=== PATIENT | female | born 1995 | race Caucasian/White ===

== ENCOUNTER 2018-12-07 11:45 | Emergency (ER) | payer MEDICAID ==
[~2018-12-07] VITALS: Ht 177.8 cm; Wt 86.2 kg
[~2018-12-07 11:45] MED LIST: NKM
[2018-12-07 12:00] VITALS: BP 140/101
--- NOTE | 2018-12-07 12:00 | NUR ---
ED Nurse Note: pt present at ER c/o dizziness since yesterday. pt denied pain. pt aao x4 and accompanied by mother. skin clean and intact but pale. pt was assisted to sit down to prevent falling.
--- NOTE | 2018-12-07 12:16 | Emergency Room Report ---
History of Present Illness General Chief Complaint: Dizziness Source: Patient Present Illness HPI 23-year-old female patient presents ER complaint of dizziness since yesterday. Reports dizziness worse with position change. Reports room spinning sensation. Reports mild photosensitivity. Denies dizziness symptoms currently. Reports one episode of vomiting yesterday, denies recent travel outside the country. Denies fever, chest pain, shortness of breath. Denies abdominal pain. Denies recent injury or trauma. Reports dizziness worse with position change. Denies vision loss or eye pain. States is not taking medication for relief of symptoms. Denies other aggravating or relieving factors. Denies phonophobia. Denies tinnitus. Allergies: Coded Allergies: No Known Allergies (Unverified , 01/21/14) Patient History Past Medical History: see triage record Last Menstrual Period: 11/30/18 Reviewed Nursing Documentation: PMH: Agreed; PSxH: Agreed Nursing Documentation-PM Past Medical History: No Stated History Review of Systems All Other Systems: negative except mentioned in HPI Physical Exam Vital Signs Date Time Temp Pulse Resp B/P (MAP) Pulse Ox O2 Delivery O2 Flow Rate FiO2 12/07/18 11:54 98.6 81 18 140/101 99 Room Air Sp02 EP Interpretation: reviewed, normal General Appearance: well appearing, no apparent distress, alert, GCS 15, non- toxic Head: normocephalic, atraumatic, other - Maxillary or frontal sinus tender to palpation Eyes: bilateral eye normal inspection, bilateral eye PERRL, bilateral eye EOMI ENT: hearing grossly normal, normal pharynx, no angioedema, normal voice, TMs + canals normal, uvula midline, moist mucus membranes Neck: full range of motion, no meningismus, no bony tend Respiratory: lungs clear, normal breath sounds, no rhonchi, no respiratory distress, no accessory muscle use, no wheezing, speaking full sentences Cardiovascular #1: regular rate, rhythm, no edema Gastrointestinal: non tender, soft, no mass, non-distended, no guarding, no rebound Genitourinary: no CVA tenderness Musculoskeletal: back normal, digits/nails normal, gait/station normal, normal range of motion, non-tender Neurologic: alert, oriented x3, responsive, cigar wrapper tender automatic III-XII nml as tested, motor strength/tone normal, SLR negative, sensory intact, cerebellar normal, normal gait, speech normal, other - Negative Kernig, negative Brudzinski Psychiatric: mood/affect normal Skin: no rash Lymphatic: no adenopathy Medical Decision Making PA Attestation Dr. John is my supervising Physician whom patient management has been discussed with. Diagnostic Impression: Primary Impression: Vertigo Additional Impression: Orthostatic dizziness ER Course Pt. presents to the ED c/o dizziness. Ddx considered but are not limited to orthostatic dizziness, vertigo, hypoglycemia, electrolyte abnormality, arrhythmia, medication side effect, , anemia, BPPV, Mnire's. NO signs or symptoms consistent central vertigo, symptoms consistent with peripheral vertigo, cranial nerves intact as tested, no focal neuro deficits, does not require CT head at this time. Negative Kernig, negative Brudzinski, patient afebrile, low suspicion for meningitis, does not require meningitis workup. Vital signs: are WNL, pt. is afebrile ER COURSE: Provided with zofran and toradol. Physical exam benign. Orthostatic vitals show mild elevation in pulse from lying down to standing, no change of blood pressure, will provide patient with IV fluids. EKG normal sinus rhythm, no ST elevation or atrial fibrillation. Low suspicion of cardiac etiology of symptoms. CBC and CMP unremarkable, no anemia, no electrolyte abnormality UA unremarkable, denying acute infection. Urine Provided with patient with Reglan for vertigo symptoms. Patient reports symptoms improve. Patient resting comfortably no acute distress , nontoxic-appearing. ER precautions given. Follow-up with neuro specialist. Patient reports feeling better, revealed ambulating freely without difficulty. Okay for outpatient follow-up and treatment. DISCHARGE: At this time pt is stable for d/c to home. Patient is resting comfortably, in no acute distress, nontoxic appearing, talking without difficulty. Patient to take medications as instructed Will provide with patient care instructions and any necessary prescriptions. Care plan and follow-up instructions provided. Patient instructed to follow-up with primary care provider in 3 - 5 days. Patient questions asked and answered. Patient reports understanding and agreement to treatment plan. ER precautions given. Patient instructed to return to ER immediately for any new or worsening of symptoms including but not limited to increasing SOB, persistent fever, chest pain, intractable vomiting. - Please note that this Emergency Department Report was dictated using [employer] attendant technology software, occasionally this can lead to erroneous entry secondary to interpretation by the dictation equipment. Labs Test 12/07/18 12:45 White Blood Count 7.3 K/UL (4.8-10.8) Red Blood Count 5.57 M/UL (4.20-5.40) Hemoglobin 14.8 G/DL (12.0-16.0) Hematocrit 46.0 % (37.0-47.0) Mean Corpuscular Volume 83 FL (80-99) Mean Corpuscular Hemoglobin 26.6 PG (27.0-31.0) Mean Corpuscular Hemoglobin Concent 32.1 G/DL (32.0-36.0) Red Cell Distribution Width 13.4 % (11.6-14.8) Platelet Count 343 K/UL (150-450) Mean Platelet Volume 6.8 FL (6.5-10.1) Neutrophils (%) (Auto) 71.0 % (45.0-75.0) Lymphocytes (%) (Auto) 22.0 % (20.0-45.0) Monocytes (%) (Auto) 4.6 % (1.0-10.0) Eosinophils (%) (Auto) 1.5 % (0.0-3.0) Basophils (%) (Auto) 1.0 % (0.0-2.0) Urine Color Pale yellow Urine Appearance Clear Urine pH 5 (4.5-8.0) Urine Specific [place] 1.015 (1.005-1.035) Urine Protein Negative (NEGATIVE) Urine Glucose (UA) Negative (NEGATIVE) Urine Ketones Negative (NEGATIVE) Urine Blood 3+ (NEGATIVE) Urine Nitrite Negative (NEGATIVE) Urine Bilirubin Negative (NEGATIVE) Urine Urobilinogen Normal MG/DL (0.0-1.0) Urine Leukocyte Esterase 1+ (NEGATIVE) Urine RBC 0-2 /HPF (0 - 2) Urine WBC 0-2 /HPF (0 - 2) Urine Squamous Epithelial Cells Occasional /LPF Urine Bacteria Few /HPF (NONE) Urine HCG, Qualitative Negative (NEGATIVE) Sodium Level 141 MMOL/L (136-145) Potassium Level 4.0 MMOL/L (3.5-5.1) Chloride Level 105 MMOL/L (98-107) Carbon Dioxide Level 27 MMOL/L (21-32) Anion Gap 10 mmol/L (5-15) Blood Urea Nitrogen 12 mg/dL (7-18) Creatinine 0.8 MG/DL (0.55-1.30) Estimat Glomerular Filtration Rate > 60 mL/min (>60) Glucose Level 85 MG/DL (74-106) Calcium Level 9.2 MG/DL (8.5-10.1) Total Bilirubin 0.3 MG/DL (0.2-1.0) Aspartate Amino Transf (AST/SGOT) 9 U/L (15-37) Alanine Aminotransferase (ALT/SGPT) 24 U/L (12-78) Alkaline Phosphatase 66 U/L (46-116) Total Protein 7.9 G/DL (6.4-8.2) Albumin 3.9 G/DL (3.4-5.0) Globulin 4.0 g/dL Albumin/Globulin Ratio 1.0 (1.0-2.7) Lipase 303 U/L (73-393) EKG Diagnostic Results Rate: normal Rhythm: NSR ST Segments: no acute changes ASA given to the pt in ED: No PA Scribe Text Chad Sheriff PA-C Rhythm Strip Diag. Results EP Interpretation: yes Rate: 66 Rhythm: NSR, no PVC's, no ectopy PA Scribe Text Chad Sheriff PA-C Last Vital Signs Date Time Temp Pulse Resp B/P (MAP) Pulse Ox O2 Delivery O2 Flow Rate FiO2 12/07/18 11:54 98.6 81 18 140/101 99 Room Air Status: improved Disposition: HOME, SELF-CARE Condition: Stable Scripts Loratadine/Pseudoephedrine (CLARITIN-D 12 HOUR TABLET) 1 Each Tab.er.12h 1 TAB ORAL EVERY 12 HOURS, #24 TAB Prov: Addy Sheriff.[email or web address] 12/07/18 Acetaminophen* (TYLENOL EXTRA STRENGTH*) 500 Mg Tablet 500 MG ORAL Q8H PRN for Prn Headache/Temp > 101, #30 TAB 0 Refills Prov: Addy Sheriff.Lorenza 12/07/18 Meclizine Hcl* (VERTICALM*) 25 Mg Tablet 25 MG ORAL THREE TIMES A DAY, #15 TAB Prov: Addy Sheriff.A. 12/07/18 Patient Instructions: Dizziness, Orthostatic Hypotension, Sinus Headache, Easy- to-Read, Vertigo Additional Instructions: Followup with primary care provider in 3 -5 days. Discussed referral to neuro specialist. ER precautions given. Drink plenty fluids. Take medications as directed. Patient questions asked and answered. ER precautions given, patient instructed to return to ER immediately for any new or worsening of symptoms. Addy Sheriff Dec 07, 2018 12:15
[2018-12-07 13:05] LABS: APPEARANCE,URINE CLEAR; BILIRUBIN, URINE NEGATIVE (NEGATIVE); COLOR,URINE PALE YELLOW; GLUCOSE, URINE (UA) NEGATIVE (NEGATIVE); KETONES,URINE NEGATIVE (NEGATIVE); LEUKOCYTE ESTERASE ,URINE 1+ (NEGATIVE); NITRITE,URINE NEGATIVE (NEGATIVE); PH,URINE 5 (4.5-8.0); PROTEIN,URINE NEGATIVE (NEGATIVE); UROBILINOGEN,URINE NORMAL MG/DL (0.0-1.0)
[2018-12-07 13:11] LABS: EOSINOPHILS % (AUTO) 1.5 % (0.0-3.0); HEMOGLOBIN 14.8 G/DL (12.0-16.0); MEAN CORPUSCULAR VOLUME 83 FL (80-99); MONOCYTES % (AUTO) 4.6 % (1.0-10.0); PLATELET COUNT 343 K/UL (150-450); RED BLOOD COUNT 5.57 M/UL (4.20-5.40); RED CELL DISTRIBUTION WIDTH 13.4 % (11.6-14.8); WHITE BLOOD COUNT 7.3 K/UL (4.8-10.8)
[2018-12-07 13:16] LABS: ANION GAP 10 mmol/L (5-15); BLOOD UREA NITROGEN 12 mg/dL (7-18); CALCIUM 9.2 MG/DL (8.5-10.1); CARBON DIOXIDE 27 MMOL/L (21-32); CHLORIDE 105 MMOL/L (98-107); CREATININE 0.8 MG/DL (0.55-1.30); SODIUM 141 MMOL/L (136-145)
[2018-12-07 13:20] LABS: ALANINE AMINOTRANSFERASE 24 U/L (12-78); ALBUMIN 3.9 G/DL (3.4-5.0); ALKALINE PHOSPHATASE 66 U/L (46-116); ASPARTATE AMINO TRANSFERASE 9 U/L (15-37); BILIRUBIN,TOTAL 0.3 MG/DL (0.2-1.0)
[2018-12-07] MEDS ORDERED: Ketorolac 30mg Inj IV ONE (14:00)
[2018-12-07] MEDS ORDERED: Metoclopramide 10mg/2ml Inj IVP ONE (14:15)
[2018-12-07] MEDS ORDERED: VERTICALM25 MG ORAL (15:00)
[2018-12-07] MEDS ORDERED: CLARITIN-D 121 EAC1 ORAL (15:00)
[2018-12-07] MEDS ORDERED: TYLENOL EXTRA500 MG ORAL (15:00)
[2018-12-07 15:20] VITALS: BP 108/71
--- NOTE | 2018-12-07 15:20 | NUR ---
ER DISCHARGE NOTE: Patient is cleared to be discharged per ERMD, pt is aox4, accompanied by mother, on room air, with stable vital signs. pt was given dc and prescription instructions, pt was able to verbalize understanding, pt id band and iv site removed without complications. pt is able to ambulate with steady gait. pt took all belongings.
== END 2018-12-07 15:20 | disposition home or self-care (01) ==
LOC: EMR 12:21
DX: R42 Dizziness and giddiness (principal)
CPT/HCPCS: 36415; 80053; 81003; 81025; 83690; 85025; 93005; 96361; 96374; 96375; 99284; J1885; J2405; J2765